=== PATIENT | male | born 1995 ===

== ENCOUNTER 2020-07-19 12:31 | Outpatient (REF) | payer SELFPAY | END 2020-07-19 12:32 | disposition home or self-care (01) | LOC: HO.LAB 12:31 | PROVIDERS: Visit Provider Internal Medicine | DX: Z20.828 Contact with and (suspected) exposure to other viral communicable diseases (principal) | CPT/HCPCS: 87635 ==

== ENCOUNTER 2024-07-01 08:56 | Outpatient (REF) | payer OTHER, SELFPAY ==
--- NOTE | ~2024-07-01 | XR_ITS ---
EXAMINATION: XR HAND, LEFT CLINICAL INFORMATION: Pain in the left hand . Attention 5th digit COMPARISON: None available. TECHNIQUE: PA, lateral, and oblique views of the left hand. FINDINGS: The bones and soft tissues are normal. No fracture. Alignment is anatomic. Joint spaces are maintained. No erosions or soft tissue calcifications. Small finger unremarkable XR/XR hand LT min 3V IMPRESSION: Normal left hand. Electronically signed by: Mario Sumner MD 07/07/2024 03:47 PM EDT
== END 2024-07-01 08:57 | disposition home or self-care (01) ==
LOC: HO.HOSX 08:56
DX: M79.642 Pain in left hand (principal)
CPT/HCPCS: 73130; 99202

== ENCOUNTER 2024-07-01 09:16 | Outpatient (AMB) | payer OTHER, SELFPAY ==
--- NOTE | 2024-07-01 09:21 | MHC.OFFVIS ---
Vital Signs 07/01/24 09:37 Height 5 ft 9 in Weight 240 lb BMI 35.4 Handedness Right Intake Visit Reasons: FC - LT 5th digit middle phalanx fx DOI 06/23/24 Intake Note: Cody is a 29 year old right hand dominant male who presents today for a work related injury, DOI 06/23/2024. Patient was seen at [facility] urgent care where he was diagnosed with a left 5th digit middle phalanx fracture. Patient reports he was setting up traffic cones when one bounced back and hit his pinky resulting in immediate pain after. He expresses pain with any ROM, he tries not to use his left hand but he says when he does have to use it and something is in the palm of the left hand he feels pain in his 5th digit. Patient reports he has noticed his arm tingling when he lays down since this injury. He says he tried ibuprofen for a week and had mild relief. Denies numbness Allergies shrimp Allergy (Severe, Verified 07/01/24 09:43) Unknown HPI HPI FC - LT 5th digit middle phalanx fx DOI 06/23/24: Details: Patient is a 29-year-old male who presents for evaluation of left small finger middle phalanx fracture, date of injury 06/23/2024. The patient reports that on that date, he was setting up traffic cones, when 1 balanced off of the pavement and hit him on his right small finger, immediately causing significant pain. The patient reports that since that time, he has been experiencing significant pain in his L small finger, but states that this has improved significantly since date of injury. The patient also reports that his finger was very swollen on date of injury, but this has all but resolved at this time. Patient denies any numbness or tingling in the left hand. No other acute or concerns at this time. 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 Neuro: Patient reports normal sensation of the tips of the left hand at this time Vascular: Cap refill brisk Pain: Patient reports tenderness to palpation on the volar aspect of the small finger, particularly at the level of the PIP joint Patient reports no tenderness to palpation of the dorsal left small finger, or any of the other digits of the left hand ROM: Patient is able to bring the left small finger approximately half way to a closed fist, and is able to extend fully without difficulty Patient is able to make a closed fist with all other digits of the left hand and extend them fully without difficulty Skin: No lacerations or abrasions. General: No ecchymosis, erythema, or evidence of infection. Psych: Appears grossly normal Affect normal Attitude cooperative Results Reviewed Results Reviewed: X-rays obtained in the office today and independently reviewed by me, Brett Mancia PA-C, demonstrate displaced avulsion fracture of the volar and proximal aspect of the middle phalanx of the left small finger. Assessment & Plan Assessment & Plan (1) Fracture of middle phalanx of left little finger: Code(s): S62.627A - Displaced fracture of middle phalanx of left little finger, initial encounter for closed fracture Category: Medical Plan 1. Left small finger middle phalanx fracture Date of injury 06/23/2020 Patient is educated about this injury Patient is educated about the typical recovery course At this time, the patient is informed that he will be needing to haris tape the left ring and small fingers to act as a moving splint for the small finger to allow for healing Patient is also informed that he will have a strict 2 lb weight limit in his left hand, and then he will need to be off of work if he can not be accommodated with this at his job. Amenable to this plan Patient will follow-up next week with repeat x-rays while Dr. Sommers is in the office, sooner with any acute concerns Orders: Orders XR hand LT min 3V Today M79.642 - Pain in left hand Coding Level of Care Code New Pt Level 3 (27891) Diagnoses Fracture of middle phalanx of left little finger S62.627A
[2024-07-01 09:37] VITALS: BMI 35.4
== END 2024-07-01 10:21 | disposition home or self-care (01) ==
PROVIDERS: PCP Pediatrics
DX: S62.627A Displaced fracture of middle phalanx of left little finger, initial encounter for closed fracture (principal)
CPT/HCPCS: 99203

== ENCOUNTER 2024-07-08 07:58 | Outpatient (REF) | payer OTHER, SELFPAY ==
--- NOTE | ~2024-07-08 | XR_ITS ---
EXAMINATION: XR HAND, LEFT CLINICAL INFORMATION: Pain left hand, attention small finger. COMPARISON: 07/01/2024 TECHNIQUE: PA and oblique views of the left hand and lateral view of the fifth digit. FINDINGS: Small ossicle along the volar aspect of the fifth PIP joint is concerning for a volar corner fracture at the base of the fifth digit proximal phalanx. Correlation with clinical exam recommended to determine further management. Alignment maintained. XR/XR hand LT min 3V IMPRESSION: Small ossicle along the volar aspect of the fifth PIP joint is concerning for a volar corner fracture at the base of the fifth digit proximal phalanx. Correlation with clinical exam recommended to determine further management. This study was presented to me on August 10, 2024 for interpretation. [facility] staff will provide results to referring provider at this time. Electronically signed by: Marina Angel MD 08/10/2024 06:04 AM EDT
== END 2024-07-08 07:59 | disposition home or self-care (01) ==
LOC: HO.HOSX 07:58
DX: M79.642 Pain in left hand (principal); S62.627A Displaced fracture of middle phalanx of left little finger, initial encounter for closed fracture
CPT/HCPCS: 73130; 99212

== ENCOUNTER 2024-07-08 08:16 | Outpatient (AMB) | payer OTHER, SELFPAY ==
--- NOTE | 2024-07-08 08:32 | MHC.OFFVIS ---
Vital Signs 07/08/24 08:33 Height 5 ft 9 in Weight 240 lb BMI 35.4 Handedness Right Intake Visit Reasons: OV - LT 5th digit middle phalanx fx DOI 06/23/24 Intake Note: Cody is a 29 year old right hand dominant male who presents today for a follow up for his Left small finger middle phalanx fracture, DOI: 06/23/2024. Patient reports he did not return to work as he was not able to be accommodated. 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 He is able to bend the pinky down but can not make a full closed fist. He expresses tingling on the volar aspect of his left pinky when he palpitates the area or applies pressure. Patient needs work letter. Allergies shrimp Allergy (Severe, Verified 07/08/24 08:33) Unknown HPI HPI OV - LT 5th digit middle phalanx fx DOI 06/23/24: Details: Patient is a 29-year-old male who presents for one-week follow-up of left small finger middle phalanx fracture, date of injury 06/23/2024. Today, the patient reports that he is feeling better, and then his range of motion has improved significantly in the left small finger, but states that he does still experience pain with range of motion. The patient reports that this pain is localized about the PIP joint of the left small finger. Patient states that he has been compliant with haris taping since previous evaluation, and then he feels his symptoms have all improved. Patient denies any numbness in the left upper extremity. No other acute complaints or concerns at this time [facility] Social History Alcohol intake: current Alcohol intake frequency: holidays/special occasions only Substance Use Type: Marijuana service: No Current occupational status: employed Current occupation: [employer] Developer Physical Exam Vital Signs: BMI result Body Mass Index 35.4 Extrem Other: Patient is alert, oriented, and in no acute distress. Neuro: Normal sensation of the tips of all digits of the left hand at this time Vascular: Cap refill brisk Pain: Patient reports mild tenderness to palpation about the PIP joint of the left small finger Patient reports pain in the PIP joint of the left small finger with making a closed fist ROM: With encouragement, patient is able to make a closed fist and extend all digits of the left hand fully Skin: No lacerations or abrasions. General: There is still some very mild edema noted about the PIP joint of the left small finger No ecchymosis, erythema, or evidence of infection. Psych: Appears grossly normal Affect normal Attitude cooperative Office Procedures Fracture Care Details: Fracture of middle phalanx of left small finger Fracture Billing Code: Fracture Billing Code Results Reviewed Results Reviewed: X-rays obtained in the office today and independently reviewed by me, Brett Mancia PA-C, demonstrate displaced avulsion fracture of the base of the middle phalanx of the left small finger, with slightly improved alignment from previous x-rays. Assessment & Plan Assessment & Plan (1) Fracture of middle phalanx of left little finger: Code(s): S62.627A - Displaced fracture of middle phalanx of left little finger, initial encounter for closed fracture Category: Medical Plan 1. Avulsion fracture of middle phalanx of left small finger Date of injury 06/23/2024 Patient appears to be recovering well from his injury Patient is educated about the typical recovery course Patient was discussed with Dr. Sommers and a collaborative treatment plan was formed: At this time, due to lack of joint laxity on physical exam and lack of dorsal subluxation on x-rays, no surgical intervention is indicated in this patient at this time Patient is educated that he should continue with haris taping in a strict 2 lb weight limit in his left hand for a further 2 weeks Patient is also educated that he should continue to work on gentle range of motion of the left hand to prevent stiffness Patient will be held out of work for a further 2 weeks, as his job is unable to accommodate this 2 lb weight limit Patient is amenable to this plan Patient will follow-up in 2 weeks with repeat x-rays, sooner with any acute concerns Orders: Orders XR hand LT min 3V Today M79.642 - Pain in left hand Coding Level of Care Code Est Pt Level 3 (90398) Diagnoses Fracture of middle phalanx of left little finger S62.627A CPT Codes Fracture Care - Fracture Billing Code: Fracture Billing Code ([id number])
[2024-07-08 08:33] VITALS: BMI 35.4
== END 2024-07-08 08:57 | disposition home or self-care (01) ==
PROVIDERS: PCP Pediatrics
DX: S62.627A Displaced fracture of middle phalanx of left little finger, initial encounter for closed fracture (principal); Z04.2 Encounter for examination and observation following work accident
CPT/HCPCS: 99213

== ENCOUNTER 2024-07-13 17:37 | Outpatient (REF) | payer OTHER, SELFPAY ==
[2024-07-14 04:47] LABS: CT PCR NOT DETECTED (Not Detect.); NG PCR NOT DETECTED (Not Detect.)
== END 2024-07-13 17:38 | disposition home or self-care (01) ==
LOC: HO.CHCLNP 17:37
PROVIDERS: Visit Provider Family Medicine
DX: Z11.3 Encounter for screening for infections with a predominantly sexual mode of transmission (principal)
CPT/HCPCS: 87491; 87591

== ENCOUNTER 2024-07-14 09:03 | Outpatient (REF) | payer SELFPAY ==
[2024-07-14 14:23] LABS: MANUAL DIFF FLAG NO
[2024-07-14 14:31] LABS: Basophils Absolute Auto 0.1 X10*3/uL (0.0-0.2); Basophils Percent Auto 1.2 % (0-2); Eosinophils Absolute Auto 0.4 X10*3/uL (0.0-0.4); Eosinophils Percent Auto 6.1 % (0-4); Hematocrit 45.6 % (42.0-52.0); Hemoglobin 16.2 g/dl (14.0-18.0); Imm Gran Abs Auto 0.04 X10*3/uL (0.00-0.03); Imm Gran Pct Auto 0.6 % (0.0-0.4); Lymphocytes Absolute Auto 1.5 X10*3/uL (1.2-4.9); Lymphocytes Percent Auto 22.1 % (20-40); Mean Corpuscular HGB Conc 35.5 g/dl (31.0-36.0); Mean Corpuscular Hemoglobin 31.4 pg (27.0-33.0); Mean Corpuscular Volume 88.4 fL (80.0-98.0); Mean Platelet Volume 12.7 fL (9.4-12.4); Monocytes Absolute Auto 0.7 X10*3/uL (0.1-1.2); Monocytes Percent Auto 10.2 % (2-11); Neutrophils Absolute Auto 3.9 x10*3/uL (2.0-8.3); Neutrophils Percent Auto 59.8 % (45-73); Platelet Count 151 X10*3/uL (160-400); Red Blood Count 5.16 X10*6/uL (4.60-5.80); White Blood Count 6.6 X10*3/uL (4.8-10.8)
[2024-07-14 14:53] LABS: Alanine Aminotransferase 52 U/L (0-40); Albumin Level 4.4 g/dL (3.5-5.0); Alkaline Phosphatase 81 U/L (39-117); Anion Gap 12 (12-20); Aspartate Amino Transferase 34 U/L (5-37); Blood Urea Nitrogen 13 mg/dL (9-16); Calcium 9.8 mg/dL (8.4-10.2); Carbon Dioxide 26 mmol/L (22-29); Chloride 105 mmol/L (96-108); Cholesterol 170 mg/dL (<200); Estimated Glomerular Filt Rate > 60; Glucose Random 103 mg/dL (60-115); HDL Cholesterol 36 mg/dL (>40); LDL Cholesterol Calculated 62 mg/dL (<100); Potassium 4.1 mmol/L (3.3-5.1); Sodium 139 mmol/L (135-145); Total Protein 7.8 g/dL (6.5-8.0); Triglycerides 362 mg/dL (<150)
[2024-07-14 15:02] LABS: TSH reflex Free T4 2.66 uIU/mL (0.32-4.0)
[2024-07-14 15:18] LABS: Creatinine Urine 158.79 mg/dL; Microalbumin Urine < 5.0 mg/L
[2024-07-15 08:01] LABS: Syphilis Screen Nonreactive (Nonreactive)
[2024-07-15 08:22] LABS: HBsAGNum1 0.35 S/CO (0.00-0.99); HIV AB/AG Nonreactive (Nonreactive); HIV Num 1 0.12 S/CO (0.00-0.99); Hepatitis B Surface Antigen Negative (Negative); ~HepC Num1 0.14 S/CO (0.00-0.79); ~Hepatitis C Antibody Nonreactive (Nonreactive)
== END 2024-07-14 09:04 | disposition home or self-care (01) ==
LOC: HO.CHCLDS 09:03
PROVIDERS: Visit Provider Family Medicine
DX: Z13.9 Encounter for screening, unspecified (principal); E66.9 Obesity, unspecified; Z68.37 Body mass index [BMI] 37.0-37.9, adult
CPT/HCPCS: 36415; 80053; 80061; 82043; 82570; 84443; 85025; 86780; 86803; 87340; 87389

== ENCOUNTER 2024-07-22 08:18 | Outpatient (REF) | payer OTHER, SELFPAY ==
--- NOTE | ~2024-07-22 | XR_ITS ---
EXAMINATION: XR HAND, LEFT CLINICAL INFORMATION: Pain left hand attention small finger. COMPARISON: 07/01/2024 , 07/08/2024. TECHNIQUE: PA views and lateral view of the fifth digit. Please note that the fifth digit is difficult to evaluate on the lateral view due to overlying bony structures. Repeat lateral view of the fifth digit recommended for better visualization at no charge to the patient. When this view is provided, an addendum will be dictated. FINDINGS: Previously identified small ossicle along the volar aspect of the fifth PIP joint concerning for a volar corner fracture at the base of the fifth digit proximal phalanx is difficult to evaluate on this exam on lateral view due to overlying bony structures. Repeat lateral view recommended. Correlation with clinical exam recommended to determine further management. XR/XR hand LT min 3V IMPRESSION: Previously identified small ossicle along the volar aspect of the fifth PIP joint, concerning for a volar corner fracture at the base of the fifth digit proximal phalanx is difficult to evaluate on this exam on lateral view due to overlying bony structures. Repeat lateral view recommended. Correlation with clinical exam recommended to determine further management. This study was presented to me on August 10 2024 for interpretation. [facility] staff will provide results to referring provider at this time. Repeat lateral view recommended for better visualization due to suboptimal positioning on initial views at no charge to the patient. When these views are provided, an addendum will be dictated. Electronically signed by: Marina Angel MD 08/10/2024 06:04 AM EDT
== END 2024-07-22 08:19 | disposition home or self-care (01) ==
LOC: HO.HOSX 08:18
DX: M79.642 Pain in left hand (principal); S62.627D Displaced fracture of middle phalanx of left little finger, subsequent encounter for fracture with routine healing
CPT/HCPCS: 73130; 99212

== ENCOUNTER 2024-07-22 08:39 | Outpatient (AMB) | payer OTHER, SELFPAY ==
--- NOTE | 2024-07-22 08:42 | A.OFFVIS_ITS ---
Vital Signs 07/22/24 08:46 Height 5 ft 9 in Weight 240 lb BMI 35.4 Handedness Right Intake Visit Reasons: OV - LT 5th digit middle phalanx fx DOI 06/23/24 Intake Note: Cody is a 29 year old right hand dominant male who presents today for a follow up for his Left small finger middle phalanx fracture, DOI: 06/23/2024. Patient reports he has been haris taping and his ROM has improved. He is able to make a full fist. He expresses if he bumps the lateral side of his finger he feels some discomfort still as if something was there. Allergies shrimp Allergy (Severe, Verified 07/22/24 08:46) Unknown HPI HPI OV - LT 5th digit middle phalanx fx DOI 06/23/24: Details: Patient is a 29-year-old male who presents for evaluation of left small finger middle phalanx fracture, date 06/23/2020 today patient reports that he is feeling well, and is only experiencing minimal discomfort in the left small finger with range of motion or palpation. Patient reports that he is able to make a closed fist without any difficulty. Patient denies any numbness or tingling in the left upper extremity. No other acute complaints or concerns at this time. 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 Neuro: Normal sensation of the tips of all digits of the left hand at this time Vascular: Cap refill brisk Pain: Patient reports very minimal tenderness to palpation about the PIP joint of the left small finger Patient reports very minimal discomfort in the PIP joint of the left small finger with making a closed fist ROM: Patient is able to make a closed fist and extend all digits of the left hand fully Patient is able to resist extension of the left small finger Skin: No lacerations or abrasions. General: No edema noted at this time No ecchymosis, erythema, or evidence of infection. Psych: Appears grossly normal Affect normal Attitude cooperative Results Reviewed Results Reviewed: X-rays obtained in the office today and independently reviewed by me, Brett Mancia PA-C, demonstrate displaced avulsion fracture of the base of the middle phalanx of the left small finger, with slightly improved alignment from previous x-rays. Assessment & Plan Assessment & Plan (1) Fracture of middle phalanx of left little finger: Code(s): S62.627A - Displaced fracture of middle phalanx of left little finger, initial encounter for closed fracture Category: Medical Plan 1. Left small finger middle phalanx fracture Date of injury 06/23/2024 Patient appears to be recovering well from his injury Patient is educated about the typical recovery course At this time, patient is cleared to return to work with a 5 lb weight limit in his left hand Patient is also educated that he does not need to haris tape while at rest, but should haris tape while participating in any athletic activities or while at work Patient was amenable to this plan Of note, the patient's insurance company that is covering his unemployment has requested for him to see ?their orthopedic surgeon? in [place] for a 2nd opinion Patient will follow-up in 4 weeks with repeat x-rays for reassessment, sooner with any acute concerns Orders: Orders XR hand LT min 3V Today M79.642 - Pain in left hand Coding Level of Care Code Global (18398) Diagnoses Fracture of middle phalanx of left little finger S62.627A
[2024-07-22 08:46] VITALS: BMI 35.4
== END 2024-07-22 09:20 | disposition home or self-care (01) ==
PROVIDERS: PCP Pediatrics
DX: S62.627A Displaced fracture of middle phalanx of left little finger, initial encounter for closed fracture (principal)
CPT/HCPCS: 99213

== ENCOUNTER 2024-08-19 09:25 | Outpatient (AMB) | payer OTHER, SELFPAY ==
--- NOTE | 2024-08-19 09:29 | MHC.OFFVIS ---
Vital Signs 08/19/24 09:32 Height 5 ft 9 in Weight 240 lb BMI 35.4 Intake Visit Reasons: OV - LT 5th digit middle phalanx fx DOI 06/23/24 Intake Note: Cody is a 29 year old right hand dominant male who presents today for a follow up of a left small finger middle phalanx fracture, DOI: 06/23/2024. Patient reports his ROM has improved. Patient reports no concerns today. Allergies shrimp Allergy (Severe, Verified 08/19/24 09:33) Unknown HPI HPI OV - LT 5th digit middle phalanx fx DOI 06/23/24: Details: Patient is a 29-year-old male who presents for follow-up evaluation for left small finger middle phalanx fracture, date of injury 06/23/2024. Patient reports no complaints or concerns at this time. Patient has full range of motion of the left hand. No numbness or tingling of the left hand. Patient inquires if he can return to work at this time. No other acute complaints or concerns. 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 Neuro: Normal sensation of the tips of all digits of the left hand at this time Vascular: Cap refill brisk Pain: Patient reports no tenderness to palpation about the PIP joint of the left small finger Patient reports no discomfort in the PIP joint of the left small finger with making a closed fist ROM: Patient is able to make a closed fist and extend all digits of the left hand fully Patient is able to resist extension of the left small finger Skin: No lacerations or abrasions. General: No edema noted at this time No ecchymosis, erythema, or evidence of infection. Psych: Appears grossly normal Affect normal Attitude cooperative Assessment & Plan Assessment & Plan (1) Fracture of middle phalanx of left little finger: Code(s): S62.627A - Displaced fracture of middle phalanx of left little finger, initial encounter for closed fracture Category: Medical Plan 1. Left small finger middle phalanx fracture Date of injury 06/23/2024 Patient appears to be recovering well from his injury Patient is educated about the typical recovery course At this time, patient is cleared to return to work as tolerated Patient is also educated that he does not need to haris tape at this time Patient was amenable to this plan Patient will follow-up as needed with any acute concerns Coding Level of Care Code Global (88367) Diagnoses Fracture of middle phalanx of left little finger S62.627A
[2024-08-19 09:32] VITALS: BMI 35.4
== END 2024-08-19 09:37 | disposition home or self-care (01) ==
LOC: HO.HOS 09:26
PROVIDERS: PCP Pediatrics
DX: S62.627A Displaced fracture of middle phalanx of left little finger, initial encounter for closed fracture (principal)
CPT/HCPCS: 99213

== ENCOUNTER → 2024-08-19 09:25 | Outpatient (BNVA) | payer OTHER, SELFPAY | PROVIDERS: PCP Pediatrics | DX: S62.627D Displaced fracture of middle phalanx of left little finger, subsequent encounter for fracture with routine healing (principal) | CPT/HCPCS: 99212 ==